=== PATIENT | female | born 1950 | race Caucasian/White ===

== ENCOUNTER 2020-01-21 23:04 | Inpatient (IN) | payer OTHER ==
[~2020-01-21] VITALS: Ht 165.1 cm; Wt 117.2 kg
[2020-01-21] MEDS ORDERED: cloNIDine HCL 0.1 MG TAB PO ONE (23:15)
[2020-01-21 23:42] LABS: Basophils # (auto) 0.1 10 ^3/uL (0-0.2); Basophils % (auto) 0.6 % (0.0-2.0); Eosinophils # (auto) 0.1 10 ^3/uL (0-0.8); Eosinophils % (auto) 0.4 % (0.0-7.0); Hematocrit 50.8 % (36.0-46.0); Hemoglobin 16.8 g/dL (12.2-16.2); Lymphocytes # (auto) 2.4 10 ^3/uL (0.4-5.4); Lymphocytes % (auto) 17.6 % (10.0-50.0); Mean Corpuscular Hemoglobin 29.8 pg (28.0-32.0); Mean Corpuscular Hgb Conc. 33.1 g/dL (32.0-36.0); Mean Corpuscular Volume 90.3 fL (80.0-100.0); Monocytes # (auto) 1.1 10 ^3/uL (0-1.3); Monocytes % (auto) 7.7 % (0.0-12.0); Neutrophils # (auto) 10.1 10 ^3/uL (1.6-8.6); Neutrophils % (auto) 73.7 % (37.0-80.0); Nucleated Red Blood Cells % 0.1 %; Platelet Count (auto) 186 10^3/uL (140-450); Red Blood Cells 5.63 10^6/uL (4.0-5.20); White Blood Cell 13.7 10^3/uL (4.4-10.8)
[2020-01-21 23:57] LABS: INR 1.1 (0.9-1.15); Partial Thromboplastin Time 38.2 sec (23.0-31.2)
[2020-01-22] LABS: Albumin 3.7 g/dL (3.4-5.0); BUN/Creatinine Ratio 11.9; Calcium 9.6 mg/dL (8.5-10.1); Magnesium 2.1 mg/dL (1.6-2.6); Potassium 4.3 mmol/L (3.5-5.1)
[2020-01-22 00:05] LABS: Bilirubin, Total 0.9 mg/dL (0.2-1.0)
[2020-01-22] MEDS ORDERED: CLOPIDOGREL BISULFATE 75 MG TAB PO ONE (00:30)
[2020-01-22] MEDS ORDERED: LOSA-69 PO (01:22)
[2020-01-22] MEDS ORDERED: ATOR20TA PO (01:22)
[2020-01-22] MEDS ORDERED: FLE50T PO (01:22)
[2020-01-22] MEDS ORDERED: METO25TA5 PO (01:22)
[2020-01-22] MEDS ORDERED: DABI150C5 PO (01:22)
[2020-01-22] MEDS ORDERED: NITROGLYCERIN 0.4 MG SL TAB SL PRN (03:00)
[2020-01-22] MEDS ORDERED: ONDANSETRON HCL 4 MG/2 ML VIAL IV PRN (03:00)
[2020-01-22] MEDS: SODIUM CHLORIDE 0.9% 1,000 ML IV SCH ×2 (03:00→18:21)
[2020-01-22] MEDS ORDERED: MORPHINE SULF INJ 2 MG/ML SYRINGE 1ML IV PRN (03:00)
[2020-01-22] MEDS ORDERED: ENOXAPARIN SOD 60 MG/0.6 ML SYRINGE SC ONE ×2 (03:00→03:45)
[2020-01-22] MEDS ORDERED: IOHEXOL 350 MG/ML 100ML IJ ONE ×3 (03:18→16:14)
--- NOTE | 2020-01-22 04:57 | NUR ---
Telemetry admit from ER RikkiLaila victor admitted to Telemetry unit after NO SBAR received FROM ER NURSE. Patient oriented to Armani mitchell RN, central unit, 212 room, B bed, and unit policies regarding patient care and visiting hours. Patient now on continuous telemetry monitoring, tele box # 36 and telemetry reading on arrival to unit is . Patient placed on bedside oxygen, weighed by bedscale and encouraged to call if they need something. All questions and concerns addressed, patient verbalized understanding.
[2020-01-22 05:26] VITALS: BP 115/73
[2020-01-22 05:49] VITALS: BP 115/73
--- NOTE | 2020-01-22 06:05 | NUR ---
Received note regarding critical troponin at this time by Gordo ABREU and he received it by wolfgang Grover label coderDeneen Castaneda page neon technician/hospitalist. Addendum: 01/22/20 at 0703 by Armani Izquierdo RN troponin 3.96
--- NOTE | 2020-01-22 06:09 | NUR ---
Paged hospitalist regarding critical value of troponin 3.96 trended up from 3.720. Awaiting call back. no chest pain. no signs of distress.
--- NOTE | 2020-01-22 06:16 | NUR ---
Paged Dr Pantoja and left message with exchange regarding critical value of troponin 3.96. awaiting call back. Addendum: 01/22/20 at 0620 by Armani Izquierdo RN called dr pantoja x2 and left message. CP Charge nurse aware.
--- NOTE | 2020-01-22 06:43 | NUR ---
Jaleel Mendoza made aware of Troponin critical value 3.96 trending up, Jaleel Mendoza advised me to call hedge fund trader. Already paged Thread Inspector.
--- NOTE | 2020-01-22 06:54 | NUR ---
Paged Dr Pantoja and left message with exchange regarding critical value of troponin 3.96. awaiting call back.
--- NOTE | 2020-01-22 06:58 | NUR ---
new cardio consult put in for Dr Machuca by hospitalist. Called Game Agent to call dr machuca, PBX advised me MD Machuca unable to call till 0800 am and internet salesperson is dr nair. already paged awaiting call back. For low heart rate in the 50's and critical troponin.
--- NOTE | 2020-01-22 07:38 | NUR ---
PROVIDED REPORT TO DAY LOIS SMITH. NOTIFIED LUIS OF ELEVATED TRENDING UP TROPONIN LEVEL, LOW HEART RATE IN 50'S, AND CALLED MULTIPLE TIMES TO NURSE COORDINATOR TO NOTIFY OF TROPONIN LEVEL AND LOW HEART RATE. HOSPITALIST AWARE OF TROPONIN LEVEL. EKG PERFORMED BY RESOURCE NURSE AND EKG PUT IN CHART. Addendum: 01/22/20 at 0742 by Armani Izquierdo RN REPORT GIVEN AT 0734
[2020-01-22 09:00] VITALS: BP 106/74
[2020-01-22 09:41] LABS: Potassium 4.4 mmol/L (3.5-5.1)
[2020-01-22 09:48] LABS: Albumin 3.7 g/dL (3.4-5.0); BUN/Creatinine Ratio 14.4; Bilirubin, Total 1.1 mg/dL (0.2-1.0); Calcium 9.6 mg/dL (8.5-10.1); Total Protein 7.5 g/dL (6.4-8.2)
[2020-01-22] MEDS: METOPROLOL TARTRATE 25 MG TAB PO SCH ×2 (10:00→21:21)
[2020-01-22] MEDS: ASPirin 81 mg TAB PO SCH (10:00)
[2020-01-22] MEDS: PANTOPRAZOLE 40 MG/10 ML VIAL INJ IV SCH (10:22)
[2020-01-22] MEDS: LOSARTAN POTASSIUM 25 MG TAB PO SCH (10:22)
[2020-01-22 10:23] LABS: Basophils # (auto) 0.1 10 ^3/uL (0-0.2); Basophils % (auto) 0.7 % (0.0-2.0); Eosinophils # (auto) 0.1 10 ^3/uL (0-0.8); Hematocrit 47.1 % (36.0-46.0); Hemoglobin 16.1 g/dL (12.2-16.2); Lymphocytes % (auto) 32.8 % (10.0-50.0); Mean Corpuscular Hemoglobin 30.6 pg (28.0-32.0); Mean Corpuscular Hgb Conc. 34.1 g/dL (32.0-36.0); Mean Corpuscular Volume 89.7 fL (80.0-100.0); Monocytes % (auto) 10.5 % (0.0-12.0); Nucleated Red Blood Cells % 0.1 %; Platelet Count (auto) 165 10^3/uL (140-450); Red Blood Cells 5.25 10^6/uL (4.0-5.20); Red Cell Distribution Width 13.3 % (11.8-14.3)
[2020-01-22 10:37] LABS: INR 1.14 (0.9-1.15); Partial Thromboplastin Time 47.4 sec (23.0-31.2)
[2020-01-22 13:00] VITALS: BP 118/76
--- NOTE | 2020-01-22 14:56 | NUR ---
PT TAKEN TO STOREROOM ATTENDANT, TRANSPORTED VIA BED. NO S/S OF DISTRESS.
[2020-01-22] MEDS ORDERED: LIDOCAINE 2%HCL (LOCAL ANESTH.) INJ 20ML MDV ONE (16:14)
[2020-01-22] MEDS ORDERED: HEPARIN SODIUM (PORCINE) 5000 UNITS/ML 1ML VIAL ONE (16:18)
[2020-01-22] MEDS ORDERED: ANGIOMAX 250 MG VIAL IV ONE (16:18)
[2020-01-22] MEDS ORDERED: VERAPAMIL 2.5MG/ML INJ 2ML VIAL IV ONE (16:18)
[2020-01-22] MEDS ORDERED: fentaNYL CITRATE 100 MCG/2 ML VL ONE (16:18)
[2020-01-22] MEDS ORDERED: MIDAZOLAM HCL 1MG/1ML-2 ML VIAL ONE (16:19)
[2020-01-22] MEDS ORDERED: SODIUM CHL 0.9% 0 ML ONE (16:19)
--- NOTE | 2020-01-22 16:20 | NUR ---
01/22/20 1620 Called [place] spoke with Olga asset analyst, stated per Gabriela MATIAS patient has authorization for 01/23/20 @1000 #[id number].
[2020-01-22] MEDS ORDERED: FAMOTIDINE (10MG/ML) 2ML VL IV ONE (16:34)
[2020-01-22] MEDS ORDERED: methylPREDNISolone SOD SUCC 125 MG/2 ML VL ONE (16:34)
[2020-01-22] MEDS ORDERED: diphenhdrAMINE HCL 50 MG/1 ML VL ONE (16:34)
--- NOTE | 2020-01-22 17:55 | NUR ---
PT ARRIVED TO UNIT VIA BED. AWAKE, ALERT, ORIENTEDx4. EFFORTLESS BREATHING ON 2LNC. TR BAND IN PLACE. WILL DEFLATE PER CARDIAC CATH TECHNICIAN INSTRUCTIONS. SENSATION INTACT, +2 PULSES TO BUE. BED LOCKED AND IN LOWEST POSITION, CALL LIGHT WITHIN REACH. WILL CONTINUE TO MONITOR.
[2020-01-22 17:58] VITALS: BP 151/91
--- NOTE | 2020-01-22 18:30 | NUR ---
TR BAND DEFLATION INITIATED. NO BLEEDING AT SITE.
--- NOTE | 2020-01-22 19:00 | NUR ---
Opening Shift Note Assumed care of patient, awake and alert. No S/S of distress/SOB or pain. Instructed on POC and to call for assist PRN, will continue to monitor for changes Q1hr and PRN.
--- NOTE | 2020-01-22 19:30 | NUR ---
TR BAND DEFLATED PER INSTRUCTIONS. SENSATION INTACT, +2 PULSES TO BUE. NO ACTIVE BLEEDING AT MOMENT. REPORT GIVEN TO CONCERT OR LECTURE HALL MANAGER RN ALL QUESTION AND CONCERNS ADDRESSED.
[2020-01-22 21:56] VITALS: BP 110/52
[2020-01-22] MEDS ORDERED: ATORVASTATIN 20 MG TAB PO SCH (22:00)
[2020-01-23 05:00] VITALS: BP 114/58
[2020-01-23] MEDS: SODIUM CHLORIDE 0.9% 1,000 ML IV SCH (05:40)
[2020-01-23 05:53] LABS: Basophils # (auto) 0 10 ^3/uL (0-0.2); Basophils % (auto) 0.1 % (0.0-2.0); Eosinophils # (auto) 0 10 ^3/uL (0-0.8); Hematocrit 43.7 % (36.0-46.0); Lymphocytes # (auto) 1.2 10 ^3/uL (0.4-5.4); Lymphocytes % (auto) 18.5 % (10.0-50.0); Mean Corpuscular Hemoglobin 30.7 pg (28.0-32.0); Mean Corpuscular Hgb Conc. 34.2 g/dL (32.0-36.0); Mean Corpuscular Volume 89.8 fL (80.0-100.0); Monocytes # (auto) 0.1 10 ^3/uL (0-1.3); Monocytes % (auto) 1.8 % (0.0-12.0); Neutrophils # (auto) 5.3 10 ^3/uL (1.6-8.6); Neutrophils % (auto) 79.6 % (37.0-80.0); Platelet Count (auto) 157 10^3/uL (140-450); Red Blood Cells 4.87 10^6/uL (4.0-5.20); Red Cell Distribution Width 13.1 % (11.8-14.3); White Blood Cell 6.6 10^3/uL (4.4-10.8)
[2020-01-23 06:12] LABS: Calcium 8.9 mg/dL (8.5-10.1); Potassium 4.3 mmol/L (3.5-5.1)
[2020-01-23 06:14] LABS: BUN/Creatinine Ratio 23.8
[2020-01-23 09:00] VITALS: BP 138/70
[2020-01-23] MEDS: METOPROLOL TARTRATE 25 MG TAB PO SCH (10:00)
[2020-01-23 10:10] VITALS: BP 138/70
[2020-01-23] MEDS: ASPirin 81 mg TAB PO SCH (10:48)
[2020-01-23] MEDS: LOSARTAN POTASSIUM 25 MG TAB PO SCH (10:49)
[2020-01-23] MEDS: PANTOPRAZOLE 40 MG/10 ML VIAL INJ IV SCH (10:49)
[2020-01-23 11:10] LABS: Cholesterol 143 mg/dL (< 200)
[2020-01-23 11:13] LABS: HDL Cholesterol 46 mg/dL (40-59); LDL Cholesterol 90 mg/dL (< 100); Triglycerides 78 mg/dL (< 150)
[2020-01-23 13:00] VITALS: BP 104/49
--- NOTE | 2020-01-23 15:15 | NUR ---
DISCHARGE INSTRUCTIONS PROVIDED TO PT. PT VERBALIZED UNDERSTANDING FOR CONTINUATION OF HOME MEDICATIONS AND FOLLOW UP APPOINTMENTS WITH PCP AND CARDIOLOGY. PT'S OWN MEDICATIONS RETURNED TO PT. EDUCATIONAL MATERIALS PROVIDED, ALL QUESTIONS AND CONCERNS ADDRESSED. TELE BOX REMOVED AND RETURNED TO TELE DEPT. IV CATHETER DC CATHETER INTACT, NO PHLEBITIS. PT SAFELY ESCORTED OUT OF UNIT VIA WHEELCHAIR. NO S/S OF DISTRESS.
== END 2020-01-23 15:15 | disposition home or self-care (01) | DRG 280 ==
LOC: EDBD 23:04 → ER 23:14 → TELE 23:15 → TELE-CENTR 01-22 04:57
PROVIDERS: ADMIT Nurse Practitioner; ATTEND Family Medicine
PROC: 4A023N7 Measurement of Cardiac Sampling and Pressure, Left Heart, Percutaneous Approach (ICD-10-PCS; principal; 2020-01-22)
PROC: B2111ZZ Fluoroscopy of Multiple Coronary Arteries using Low Osmolar Contrast (ICD-10-PCS; 2020-01-22)
PROC: B2151ZZ Fluoroscopy of Left Heart using Low Osmolar Contrast (ICD-10-PCS; 2020-01-22)
DX: I21.4 Non-ST elevation (NSTEMI) myocardial infarction (principal); I50.23 Acute on chronic systolic (congestive) heart failure; I48.20 Chronic atrial fibrillation, unspecified; D68.9 Coagulation defect, unspecified; Z68.41 Body mass index [BMI] 40.0-44.9, adult; I50.20 Unspecified systolic (congestive) heart failure; I11.0 Hypertensive heart disease with heart failure; R73.9 Hyperglycemia, unspecified; E78.5 Hyperlipidemia, unspecified; E66.01 Morbid (severe) obesity due to excess calories; R00.1 Bradycardia, unspecified; I48.0 Paroxysmal atrial fibrillation; Z90.49 Acquired absence of other specified parts of digestive tract
CPT/HCPCS: 36415; 71045; 71275; 80048; 80053; 80061; 83735; 83880; 84443; 84484; 85025; 85379; 85610; 85730; 93005; 93306; 93458; 99152; C9113; G0378; J2250; J3490